=== PATIENT | female | born 1985 | race Caucasian/White ===

== ENCOUNTER 2017-10-11 11:33 | Emergency (ER) | payer MEDICAID ==
[~2017-10-11] VITALS: Ht 162.6 cm; Wt 97.0 kg
[2017-10-11 11:53] VITALS: BP 121/75
[2017-10-11] MEDS ORDERED: HYDROcodone/acetaminophen 5mg/325mg tablet PO ONE (12:10)
[2017-10-11] MEDS ORDERED: acetaminophen 325mg tablet PO ONE (12:10)
[2017-10-11] MEDS ORDERED: ondansetron 4mg rapidly disintigrating tab PO ONE (12:10)
[2017-10-11] MEDS ORDERED: IBUP-1985 PO (12:15)
[2017-10-11] MEDS ORDERED: HYDR-3965 PO (12:15)
== END 2017-10-11 12:39 | disposition home or self-care (01) ==
LOC: ER 11:34
DX: S92.342A Displaced fracture of fourth metatarsal bone, left foot, initial encounter for closed fracture (principal); Z79.1 Long term (current) use of non-steroidal anti-inflammatories (NSAID); W01.0XXA Fall on same level from slipping, tripping and stumbling without subsequent striking against object, initial encounter; Y93.89 Activity, other specified; Y92.89 Other specified places as the place of occurrence of the external cause; Y99.8 Other external cause status
CPT/HCPCS: 73630; 99284; L4360